=== PATIENT | male | born 1955 | race Caucasian/White ===

== ENCOUNTER → 2016-12-03 | Outpatient (CLI) | payer OTHER | END | disposition home or self-care (01) | LOC: CARD 08:39 | PROVIDERS: ATTEND Family Medicine | DX: Z02.1 Encounter for pre-employment examination (principal) | CPT/HCPCS: 93017 ==

== ENCOUNTER → 2020-08-21 | Outpatient (CLI) | payer OTHER ==
[~2020-08-21] MED LIST: BUDE0.5A INH
== END | disposition home or self-care (01) ==
LOC: STAR 10:40
PROVIDERS: ATTEND Otolaryngology
DX: Z01.818 Encounter for other preprocedural examination (principal); Z20.822 Contact with and (suspected) exposure to COVID-19
CPT/HCPCS: 93005; U0003; U0005

== ENCOUNTER → 2020-08-26 | Outpatient (CLI) | payer OTHER | END | disposition home or self-care (01) | LOC: CFH 08:58 | PROVIDERS: ATTEND Otolaryngology | DX: J34.2 Deviated nasal septum (principal); J34.89 Other specified disorders of nose and nasal sinuses; J32.4 Chronic pansinusitis; J33.8 Other polyp of sinus | CPT/HCPCS: 70486 ==

== ENCOUNTER 2020-08-27 07:52 | Day surgery (SDC) | payer OTHER ==
[~2020-08-27] VITALS: Ht 177.8 cm; Wt 61.9 kg
[~2020-08-27 07:52] MED LIST changes: +BACITRACIN OINT 500U/GM, 15 GM ONE; +EPINEPHRINE 1 MG/ML, 1ML ONE; +EPINEPHRINE TOPICAL SOLN 1 MG/ML, 30ML ONE; +LIDOCAINE/PF 1%, 30ML ONE; +OXYMETAZOLINE NASAL SPRAY 0.05%,30ML ONE
[2020-08-27] MEDS ORDERED: CHLORHEXIDINE 15 ML UDC ONE (08:29)
[2020-08-27] MEDS ORDERED: LACTATED RINGERS 1,000 ML IV SCH (08:30)
[2020-08-27] MEDS ORDERED: CHLORHEXIDINE 15 ML UDC PO ONE (08:30)
[2020-08-27] MEDS ORDERED: FENTANYL PF 250 MCG/5ML ONE (09:31)
[2020-08-27] MEDS ORDERED: MIDAZOLAM 1 MG/ML, 2ML ONE (09:31)
[2020-08-27] MEDS ORDERED: PROPOFOL 10 MG/ML, 20ML ONE (09:32)
[2020-08-27] MEDS ORDERED: ROCURONIUM 10MG/ML,5ML ONE (09:33)
[2020-08-27] MEDS ORDERED: LIDOCAINE-MPF 2% ,5ML ONE (09:34)
[2020-08-27] MEDS ORDERED: ONDANSETRON 2MG/ML, 2ML ONE (09:35)
[2020-08-27] MEDS ORDERED: DEXAMETHASONE 4 MG/ML, 1ML ONE ×2 (09:35)
[2020-08-27] MEDS ORDERED: CEFAZOLIN 1,000 MG ONE ×2 (09:35)
[2020-08-27] MEDS ORDERED: ONDANSETRON 2MG/ML, 2ML IVPush PRN (10:00)
[2020-08-27] MEDS ORDERED: HYDROmorphone 1 MG/ML, 1ML INJ IVPush PRN (10:00)
[2020-08-27] MEDS ORDERED: OXYcodone 5 MG/5 ML ORAL.SOL UDC PO PRN (10:00)
[2020-08-27] MEDS ORDERED: hydrALAzine 20 MG/ML, 1ML IV PRN (10:00)
[2020-08-27] MEDS ORDERED: DIAZEPAM 5 MG/ML, 2ML IVPush PRN (10:00)
[2020-08-27] MEDS ORDERED: FENTANYL PF 100 MCG/2ML IV PRN (10:00)
[2020-08-27] MEDS ORDERED: ACETAMINOPHEN 325 MG TABLET PO PRN (10:00)
[2020-08-27] MEDS ORDERED: LABETALOL 5MG/ML, 20ML IV PRN (10:00)
[2020-08-27] MEDS ORDERED: GLYCOPYRROLATE 0.2MG/1ML, 5ML ONE (11:07)
[2020-08-27] MEDS ORDERED: NEOSTIGMINE 1 MG/ML, 10ML ONE (11:07)
[2020-08-27] MEDS: FLUORESCEIN SODIUM 500 MG/5 ML ONE ×2 (11:46→11:49)
[2020-08-27] MEDS ORDERED: ACETAMINOPHEN 650 MG/20.3 ML UDC ONE (13:54)
[2020-08-27] MEDS ORDERED: OXYcodone 5 MG/5 ML ORAL.SOL UDC ONE (13:54)
== END 2020-08-27 15:05 | disposition home or self-care (01) ==
LOC: OUT 07:52
PROVIDERS: ATTEND Otolaryngology
DX: J32.4 Chronic pansinusitis (principal); J33.8 Other polyp of sinus; J45.30 Mild persistent asthma, uncomplicated; Z79.899 Other long term (current) drug therapy; Z88.8 Allergy status to other drugs, medicaments and biological substances; Z98.890 Other specified postprocedural states
CPT/HCPCS: 31253; 31259; 31267; 87070; 87075; 87205; J0171; J0690; J1100; J2250; J2405; J2704; J2710; J3010; J7120